=== PATIENT | male | born 1975 | race Caucasian/White ===

== ENCOUNTER → 2018-01-11 | Outpatient (CLI) | payer OTHER ==
--- NOTE | 2018-01-11 07:30 | DIAGNOSTIC IMAGING REPORT ---
(RENAL)RETROPERITON COMP HISTORY: Hydrocele. Obstruction. Pain. N43.3 [id number] COMPARISON: None. FINDINGS: Right kidney: Maximum dimension 12.0 cm. No evidence for hydronephrosis. Normal corticomedullary differentiation and cortical thickness. Left kidney: Maximum dimension 11.7 cm. No evidence for hydronephrosis. 5 mm lower pole nonobstructing calcification. Normal corticomedullary differentiation and cortical thickness. Bladder: No bladder wall thickening. The bilateral ureteral jets were identified. IMPRESSION: Small nonobstructing calcification lower pole left kidney. Otherwise normal study. The above report was generated using voice recognition software. It may contain grammatical, syntax or spelling errors. Electronically signed by: Avery Brock M.D. 01/11/2018 7:29 AM Dictated Date/Time: 01/11/2018 7:27 AM
--- NOTE | 2018-01-11 07:42 | DIAGNOSTIC IMAGING REPORT ---
KUB HISTORY: Recent lithotripsy. Nephrolithiasis. N43.3 Hydrocele [id number] COMPARISON: Renal ultrasound 01/11/2018. FINDINGS: The bowel gas pattern is unremarkable. There are no dilated loops of small bowel to suggest an obstruction. There is a 7 mm stone within the lower pole the left kidney. No right renal calculi. Small curvilinear calcification within the left side of the pelvis favors a vascular calcification. No pneumoperitoneum or pneumatosis. IMPRESSION: 1. A 7 mm stone within the lower pole the left kidney. 2. Small curvilinear calcification within the left side of the pelvis favors avascular calcification. A distal ureteral calculus could also have a similar appearance but is considered less likely. Electronically signed by: Leonidas Castaneda M.D. 01/11/2018 7:41 AM Dictated Date/Time: 01/11/2018 7:40 AM
== END | disposition home or self-care (01) ==
LOC: C.ULTR 06:36
PROVIDERS: ATTEND Urology
DX: N43.3 Hydrocele, unspecified (principal); N20.0 Calculus of kidney; R93.41 Abnormal radiologic findings on diagnostic imaging of renal pelvis, ureter, or bladder

== ENCOUNTER → 2018-05-27 | Outpatient (CLI) | payer OTHER ==
[~2018-05-27] VITALS: Ht 182.9 cm; Wt 125.0 kg
[~2018-05-27] MED LIST: AMLO-341 PO; BECL80AE7 INH; CLR10 PO; FAMO20TA11 PO; OMEG10007 PO; VITA1TAB4 PO
[2018-05-27 13:16] LABS: BASO % 0.3 %; BASO ABS # 0.02 K/uL (0-0.2); EOS % 3.4 %; EOS ABS # 0.26 K/uL (0-0.5); HEMATOCRIT 46.2 % (42-52); HEMOGLOBIN 16.7 g/dL (14.0-18.0); IG# 0.03 K/uL (0.00-0.02); LYMPH % 31.7 %; LYMPH ABS # 2.41 K/uL (1.2-3.4); MEAN CELL VOLUME 87.5 fL (80-100); MEAN CORPUSCULAR HEMOGLOBIN 31.6 pg (25-34); MEAN CORPUSCULAR HGB CONC 36.1 g/dl (32-36); MEAN PLATELET VOLUME 11.5 fL (7.4-10.4); MONO ABS # 0.38 K/uL (0.11-0.59); NEUT % 59.2 %; PLATELET COUNT 152 K/uL (130-400); RED CELL DISTRIBUTION WIDTH CV 12.5 % (11.5-14.5); RED CELL DISTRIBUTION WIDTH SD 39.8 fL (36.4-46.3)
--- NOTE | 2018-05-27 13:23 | DIAGNOSTIC IMAGING REPORT ---
CHEST 2 VIEWS ROUTINE HISTORY: 42 years-old Male N20.0 Nephrolithiasis follow-up study in a patient with history of nephrolithiasis COMPARISON: KUB 01/11/2018 TECHNIQUE: PA and lateral views of the chest FINDINGS: Cardiomediastinal and hilar silhouettes are within normal limits. No pneumothorax, pleural effusion, focal airspace consolidation or overt pulmonary edema. Bones of the chest appear grossly intact. Multilevel spondylitic spurring of the spine. IMPRESSION: No acute process. The above report was generated using voice recognition software. It may contain grammatical, syntax or spelling errors. Electronically signed by: Dell Winters M.D. 05/27/2018 1:22 PM Dictated Date/Time: 05/27/2018 1:21 PM
[2018-05-27 13:49] LABS: BLOOD UREA NITROGEN 15 mg/dl (7-18); CARBON DIOXIDE 24 mmol/L (21-32); CREATININE 1.17 mg/dl (0.60-1.40); POTASSIUM 3.5 mmol/L (3.5-5.1); SODIUM 138 mmol/L (136-145)
[2018-05-27 14:10] VITALS: Ht 182.9 cm; Wt 125.0 kg
== END | disposition home or self-care (01) ==
LOC: C.LAB 16:57 → C.PAT 06-04 16:27 → C.LAB 06-04 16:57 → EDSTATUS 06-14 08:00
PROVIDERS: ATTEND Urology
DX: N20.0 Calculus of kidney (principal); R00.0 Tachycardia, unspecified

== ENCOUNTER 2018-06-14 14:09 | Inpatient (IN) | payer OTHER ==
[~2018-06-14] VITALS: Ht 182.9 cm; Wt 125.0 kg
[~2018-06-14 14:09] MED LIST changes: -AMLO-341 PO; -ATROPINE SULFATE 0.1 MG/ML 5ML SYR IV PRN; -BECL80AE7 INH; -BUPIVACAINE/EPINEPHRINE 0.5% MPF 1:200,000 30 ML VIAL ONE; -CEFAZOLIN 3000MG IV PUSH 22.5 ML IV SCH; -CLR10 PO; -EpHEDrine SULFATE INJ 50 MG/ML AMP IV PRN; -FAMO20TA11 PO; -FENTANYL CITRATE INJ 50 MCG/1 ML 2 ML VIAL ONE; -LABETALOL HCL IV 5 MG/ML 20ML ONE; -LACTATED RINGER'S 1000ML 1,000 ML IV SCH; -LIDOCAINE HCL 2% 2 ML VIAL (20MG/ML) ONE; -MIDAZOLAM HCL 1 MG/ML 2ML VIAL ONE; -OMEG10007 PO; -ONDANSETRON INJ 2 MG/ML 2 ML VIAL IV PRN; -ONDANSETRON INJ 2 MG/ML 2 ML VIAL ONE; -OXYCODONE/ACETAMINOPHEN 5-325 TAB PO PRN; -PROPOFOL IV EMULSION 10 MG/ML 20 ML VIAL ONE; -ROCURONIUM BROMIDE 10 MG/ML 5 ML VIAL ONE; -SUCCINYLCHOLINE CHLORIDE 20 MG/ML 10 ML VIAL IV ONE; -VITA1TAB4 PO
[2018-06-14] MEDS ORDERED: OMEG10007 PO (14:10)
[2018-06-14] MEDS ORDERED: FAMO20TA11 PO (14:10)
[2018-06-14] MEDS ORDERED: VITA1TAB4 PO (14:10)
[2018-06-14] MEDS ORDERED: BECL80AE7 INH (14:10)
[2018-06-14] MEDS ORDERED: AMLO-341 PO (14:10)
[2018-06-14] MEDS ORDERED: CLR10 PO (14:10)
[2018-06-14] MEDS ORDERED: SODIUM CHLORIDE 0.9% 1000ML 1,000 ML IV STA (14:45)
[2018-06-14] MEDS ORDERED: ONDANSETRON INJ 2 MG/ML 2 ML VIAL IV STA (14:45)
[2018-06-14] MEDS ORDERED: SODIUM CHLORIDE 0.9% 500ML 500 ML IV STA (14:45)
[2018-06-14] MEDS ORDERED: FENTANYL CITRATE INJ 50 MCG/1 ML 2 ML VIAL IV STA (14:45)
--- NOTE | 2018-06-14 14:52 | EMERGENCY ROOM VISIT NOTE ---
History Report prepared by Shilpa: Nani Ken Under the Supervision of: Dr. Kellen Hutchinson M.D. First contact with patient: 14:34 Chief Complaint: BLEEDING Stated Complaint: DIZZY,S/P HYDROCELECTOMY THIS AM, BLEEDING Nursing Triage Summary: Hydrocelectomy this am. pt now reports dizziness, dry mouth, bleeding from stent sites, scrotal swelling. pt was referred here by surgeon History of Present Illness The patient is a 42 year old male who presents to the Emergency Room with complaints of bleeding from his scrotum today. The patient states that he had a left hydrocelectomy at 0700 this morning. He states that the site was draining blood earlier. The patient reports feeling dizzy and states that he has been dry heaving but denies vomiting. He also reports feeling dehydrated. Per family , the patient would have been due for a Percocet at 1430. The patient states that he has not eaten since lunch yesterday. The patient reports a history of hypertension. Source of History: patient, family Onset: today Position: other (scrotum) Quality: other (bleeding) Associated Symptoms: + weakness (dizzy), No vomiting Review of Systems See HPI for pertinent positives & negatives. A total of 10 systems reviewed and were otherwise negative. Past Medical & Surgical Medical Problems: (1) HTN (hypertension) Surgical Problems: (1) History of hydrocelectomy Family History Patient reports no known family medical history. Social History Smoking Status: Former Smoker Marital Status: Housing Status: lives with family Occupation Status: employed Current/Historical Medications Scheduled Amlodipine Besylate-Valsartan (Amlodipine Besylate/Valsa 5-160 mg), 1 TAB PO QAM Beclomethasone Dip (Qvar), 2 PUFFS INH BID Clindamycin HCl (Clindamycin HCl), 1 CAP PO QID Fish Oil ([place]-3), 1 CAP PO TID Loratadine (Claritin), 10 MG PO QPM Phenazopyridine Hcl (Pyridium), 200 MG PO TID Sulfamethoxazole-Trimethoprim (Bactrim Ds 800MG/160MG), 1 TAB PO BID Tamsulosin Hcl (Flomax), 0.4 MG PO DAILY Vitamin E (Vitamin E), 400 INTER.UNIT PO QAM Scheduled PRN Famotidine (Pepcid), 20 MG PO DAILY PRN for Heartburn Oxycodone/Acetaminophen 7.5MG/325MG (Percocet 7.5MG/325MG), 1 TAB PO Q4 PRN for Pain Allergies Coded Allergies: Penicillins (Verified Allergy, Unknown, UNK, 06/14/18) Physical Exam Vital Signs Date Time Temp Pulse Resp B/P (MAP) Pulse Ox O2 Delivery O2 Flow Rate FiO2 06/14/18 17:17 85 14 124/79 97 Room Air 06/14/18 16:46 83 13 133/82 96 Room Air 06/14/18 16:10 92 9 146/93 94 Room Air 06/14/18 15:28 93 06/14/18 14:16 36.3 92 18 106/71 95 Room Air Physical Exam Vital signs reviewed. Patient is afebrile. General: Well-appearing male, in no significant distress. HEENT: No scleral icterus, PERRLA, neck supple. Atraumatic. Cardiovascular: Regular rate and rhythm, no extra sounds. Pulmonary: Clear to auscultation bilaterally, normal work of breathing. Abdomen: Soft, nontender, nondistended, positive bowel sounds. Musculoskeletal: Atraumatic, no peripheral edema. Neurologic: Patient awake alert and oriented x 3, full strength in all 4 extremities. Cranial nerves 2 through 12 grossly intact. Skin: Warm, dry, no rash : Markedly edematous scrotum with ecchymosis and a surgical drain that does not appear to be draining. Non-visualization of the glans penis due to swelling. Medical Decision & Procedures Laboratory Results 06/14/18 15:09 Red Blood Count 4.70, Mean Corpuscular Volume 88.5, Mean Corpuscular Hemoglobin 31.9, Mean Corpuscular Hemoglobin Concent 36.1, Mean Platelet Volume 11.3, Neutrophils (%) (Auto) 88.7, Lymphocytes (%) (Auto) 6.1, Monocytes (%) (Auto) 4.7, Eosinophils (%) (Auto) 0.1, Basophils (%) (Auto) 0.2, Neutrophils # (Auto) 11.09, Lymphocytes # (Auto) 0.76, Monocytes # (Auto) 0.59, Eosinophils # (Auto) 0.01, Basophils # (Auto) 0.02 06/14/18 15:09 Test 06/14/18 15:09 White Blood Count 12.50 K/uL (4.8-10.8) Red Blood Count 4.70 M/uL (4.7-6.1) Hemoglobin 15.0 g/dL (14.0-18.0) Hematocrit 41.6 % (42-52) Mean Corpuscular Volume 88.5 fL (80-100) Mean Corpuscular Hemoglobin 31.9 pg (25-34) Mean Corpuscular Hemoglobin Concent 36.1 g/dl (32-36) Platelet Count 148 K/uL (130-400) Mean Platelet Volume 11.3 fL (7.4-10.4) Neutrophils (%) (Auto) 88.7 % Lymphocytes (%) (Auto) 6.1 % Monocytes (%) (Auto) 4.7 % Eosinophils (%) (Auto) 0.1 % Basophils (%) (Auto) 0.2 % Neutrophils # (Auto) 11.09 K/uL (1.4-6.5) Lymphocytes # (Auto) 0.76 K/uL (1.2-3.4) Monocytes # (Auto) 0.59 K/uL (0.11-0.59) Eosinophils # (Auto) 0.01 K/uL (0-0.5) Basophils # (Auto) 0.02 K/uL (0-0.2) RDW Standard Deviation 40.6 fL (36.4-46.3) RDW Coefficient of Variation 12.7 % (11.5-14.5) Immature Granulocyte % (Auto) 0.2 % Immature Granulocyte # (Auto) 0.03 K/uL (0.00-0.02) Anion Gap 9.0 mmol/L (3-11) Estimated GFR () 73.2 Estimated GFR (Non- 63.2 BUN/Creatinine Ratio 12.9 (10-20) Calcium Level 8.6 mg/dl (8.5-10.1) Total Bilirubin 0.9 mg/dl (0.2-1) Direct Bilirubin 0.2 mg/dl (0-0.2) Aspartate Amino Transf (AST/SGOT) 28 U/L (15-37) Alanine Aminotransferase (ALT/SGPT) 42 U/L (12-78) Alkaline Phosphatase 56 U/L (45-117) Total Protein 7.0 gm/dl (6.4-8.2) Albumin 3.9 gm/dl (3.4-5.0) Laboratory results per my review. Medications Administered Medications (Trade) Dose Ordered Sig/Patel Route Start Time Stop Time Status Last Admin Dose Admin Sodium Chloride 500 ml @ 999 mls/hr Q31M STAT IV 06/14/18 14:45 06/14/18 15:15 DC 06/14/18 14:45 999 MLS/HR Sodium Chloride 1,000 ml @ 150 mls/hr Q6H40M STAT IV 06/14/18 14:45 06/14/18 21:24 06/14/18 14:45 150 MLS/HR Fentanyl Citrate (Fentanyl Inj) 100 mcg NOW STAT IV 06/14/18 14:45 06/14/18 14:48 DC 06/14/18 15:07 100 MCG Ondansetron HCl (Zofran Inj) 4 mg NOW STAT IV 06/14/18 14:45 06/14/18 14:48 DC 06/14/18 15:07 4 MG Fentanyl Citrate (Fentanyl Inj) 100 mcg Q1HWA PRN IV 06/14/18 16:00 06/28/18 15:59 06/14/18 17:16 100 MCG ED Course 1443: Past medical records reviewed. The patient was evaluated in room A11A. A complete history and physical examination was performed. 1456: I reviewed the patient's case with Dr. Heck-Urology. He will come to evaluate the patient. 1512: I checked on the patient. Dr. Heck will take the patient back to the OR. 1620: I checked on the patient. He is feeling better with the Fentanyl. He is fourth on the list for the OR. 1800: The patient was admitted to Dr. Heck. Dr. Heck just finished his last case so the patient will be going to the OR shortly. Medical Decision The patient is a 42 year old male who presents to the ED with complaints of scrotal bleeding. Differentials include post-surgical scrotal hematoma, testicular torsion, kidney stone, orchitis, and epididymitis. This patient was evaluated and appeared to be in no significant distress. Physical examination reveals a scrotal hematoma and a surgical drain that does not appear to be draining. Patient likely has a blood collection. He is in some discomfort but IV fentanyl and Zofran have helped alleviate this discomfort. IV normal saline solution was given. Dr. Heck of urology was contacted and evaluated the patient in the emergency department. He will take the patient to the operating room later this evening for definitive management. Patient and are aware of the plan and agree. Patient did receive additional IV fentanyl for continued discomfort. Medication Reconcilliation Current Medication List: was personally reviewed by me Blood Pressure Screening Patient's blood pressure: Normal blood pressure Consults Time Called: 144 Consulting Physician: Dr. Heck-Urology Returned Call: [id number] I reviewed the patient's case with Dr. Heck-Urology. He will come to evaluate the patient. Impression Primary Impression: Scrotal hematoma Additional Impression: History of hydrocelectomy Scribe Attestation The scribe's documentation has been prepared under my direction and personally reviewed by me in its entirety. I confirm that the note above accurately reflects all work, treatment, procedures, and medical decision making performed by me. Departure Information Dispostion Being Evaluated By Hospitalist Referrals Clover Umana M.D. (PCP) Patient Instructions My [facility] Problem Qualifiers
[2018-06-14 15:21] LABS: BASO % 0.2 %; BASO ABS # 0.02 K/uL (0-0.2); EOS % 0.1 %; EOS ABS # 0.01 K/uL (0-0.5); HEMATOCRIT 41.6 % (42-52); IG# 0.03 K/uL (0.00-0.02); LYMPH % 6.1 %; LYMPH ABS # 0.76 K/uL (1.2-3.4); MEAN CELL VOLUME 88.5 fL (80-100); MEAN CORPUSCULAR HEMOGLOBIN 31.9 pg (25-34); MEAN CORPUSCULAR HGB CONC 36.1 g/dl (32-36); MEAN PLATELET VOLUME 11.3 fL (7.4-10.4); MONO % 4.7 %; MONO ABS # 0.59 K/uL (0.11-0.59); NEUT % 88.7 %; NEUT ABS # 11.09 K/uL (1.4-6.5); PLATELET COUNT 148 K/uL (130-400); RED CELL DISTRIBUTION WIDTH CV 12.7 % (11.5-14.5); RED CELL DISTRIBUTION WIDTH SD 40.6 fL (36.4-46.3)
[2018-06-14 15:40] LABS: ALBUMIN 3.9 gm/dl (3.4-5.0); ALKALINE PHOSPHATASE 56 U/L (45-117); ALT/SGPT 42 U/L (12-78); AST/SGOT 28 U/L (15-37); BLOOD UREA NITROGEN 18 mg/dl (7-18); CALCIUM 8.6 mg/dl (8.5-10.1); CARBON DIOXIDE 26 mmol/L (21-32); CREATININE 1.37 mg/dl (0.60-1.40); GLUCOSE 152 mg/dl (70-99); POTASSIUM 4.2 mmol/L (3.5-5.1); SODIUM 138 mmol/L (136-145)
[2018-06-14] MEDS: FENTANYL CITRATE INJ 50 MCG/1 ML 2 ML VIAL IV PRN ×2 (16:07→17:16)
--- NOTE | 2018-06-14 18:00 | History and Physical ---
History & Physical Date Jun 14, 2018. Chief Complaint Scrotal Hematoma. History of Present Illness The patient is a 42 year old male with complaints of severe swelling and enlargement and bruising of scrotum after hydrocelectomy. Patient developed severe issues after procedure earlier in day. No inciting event. Spontaneous developed severe swelling, trouble voiding, and sever pain. Comes in waves. Very bothersome. No major improvement. Has shameka drain in place that appears to be draining but still major swelling and pain. Radiating up groin in waves and severe discomfort. Past Medical/Surgical History Medical Problems: (1) HTN (hypertension) Surgical Problems: (1) History of hydrocelectomy Allergies Coded Allergies: Penicillins (Verified Allergy, Unknown, UNK, 06/14/18) Home Medications Scheduled Amlodipine Besylate-Valsartan (Amlodipine Besylate/Valsa 5-160 mg), 1 TAB PO QAM Beclomethasone Dip (Qvar), 2 PUFFS INH BID Clindamycin HCl (Clindamycin HCl), 1 CAP PO QID Fish Oil ([place]-3), 1 CAP PO TID Loratadine (Claritin), 10 MG PO QPM Phenazopyridine Hcl (Pyridium), 200 MG PO TID Sulfamethoxazole-Trimethoprim (Bactrim Ds 800MG/160MG), 1 TAB PO BID Tamsulosin Hcl (Flomax), 0.4 MG PO DAILY Vitamin E (Vitamin E), 400 INTER.UNIT PO QAM Scheduled PRN Famotidine (Pepcid), 20 MG PO DAILY PRN for Heartburn Oxycodone/Acetaminophen 7.5MG/325MG (Percocet 7.5MG/325MG), 1 TAB PO Q4 PRN for Pain Physical Examination Skin: warm/dry Eyes: normal inspection, sclerae normal ENT: normal ENT inspection, pharynx normal Head: normocephalic, atraumatic Neck: trachea midline Respiratory/Chest: no respiratory distress Cardiovascular: regular rate, rhythm Abdomen / GI: non tender Back: normal inspection Extremities: normal inspection Genitourinary - Male: + pertinent finding (Severe swelling of bilateral scrotum with ecchymosis and severe tenderness. ) Neurologic/Psych: no motor/sensory deficits, alert, normal reflexes, oriented x 3 Diagnosis Scrotal Hematoma ASA Classification: ASA Class III Plan of Treatment Pain management and supportive care. Risks and benefits discussed at [facility]. Will plan urgent scrotal exploration and evacuation of hematoma. Patient has bilateral echymosis and swelling and drain continues to drain at this time without severe swelling of unilateral hemiscrotum. Will assess with exploration to better identify source of issues. Patient wishes to proceed. Consent on chart.
[2018-06-14] MEDS ORDERED: BACITRACIN OINT 15 GM TUBE ONE (18:18)
[2018-06-14] MEDS: BUPIVACAINE 0.5 % 5 MG/1 ML PF 10ML VIAL ONE ×2 (18:19→21:27)
[2018-06-14] MEDS ORDERED: ONDANSETRON INJ 2 MG/ML 2 ML VIAL ONE (18:58)
[2018-06-14] MEDS ORDERED: PROPOFOL IV EMULSION 10 MG/ML 20 ML VIAL ONE (18:58)
[2018-06-14] MEDS ORDERED: LIDOCAINE HCL 2% 2 ML VIAL (20MG/ML) ONE (18:58)
[2018-06-14] MEDS ORDERED: FENTANYL CITRATE INJ 50 MCG/1 ML 2 ML VIAL ONE (18:59)
[2018-06-14] MEDS ORDERED: MIDAZOLAM HCL 1 MG/ML 2ML VIAL ONE (18:59)
[2018-06-14] MEDS ORDERED: ONDANSETRON INJ 2 MG/ML 2 ML VIAL IV PRN ×2 (19:15→19:30)
[2018-06-14] MEDS ORDERED: HYDROmorphone INJ 1 MG/ML SYR IV PRN ×2 (19:15→19:30)
[2018-06-14] MEDS ORDERED: CEFAZOLIN IV 1,000 MG in DEXTROSE 5% 50ML 50 ML IV SCH (19:15)
[2018-06-14] MEDS ORDERED: FENTANYL CITRATE INJ 50 MCG/1 ML 2 ML VIAL IV PRN (19:30)
[2018-06-14] MEDS ORDERED: EpHEDrine SULFATE INJ 50 MG/ML AMP IV PRN (19:30)
[2018-06-14] MEDS ORDERED: MEPERIDINE HCL 25 MG/ML CARP IV PRN (19:30)
[2018-06-14] MEDS ORDERED: LABETALOL HCL IV 5 MG/ML 20ML IV PRN (19:30)
[2018-06-14] MEDS ORDERED: ATROPINE SULFATE 0.1 MG/ML 5ML SYR IV PRN (19:30)
[2018-06-14] MEDS ORDERED: BACITRACIN 50000 UNIT VIAL ONE (19:39)
[2018-06-14] MEDS ORDERED: CEFAZOLIN SOD 1 GM VIAL ONE (20:00)
[2018-06-14] MEDS ORDERED: PHENYLEPHRINE HCL INJ 10 MG/ML VIAL ONE (20:00)
[2018-06-14] MEDS ORDERED: ARISTA ABSORBABLE HEMOSTAT 3GM TOP ONE (20:09)
[2018-06-14] MEDS: DOCUSATE SODIUM 100 MG CAP PO SCH (21:00)
[2018-06-14] MEDS ORDERED: IV FLUIDS COMPLETED PRN (21:15)
--- NOTE | 2018-06-14 21:38 | [facility] Operative Report ---
Operative Report Operative Date Jun 14, 2018. Pre-Operative Diagnosis Scrotal Hematoma Post-Operative Diagnosis Same Procedure(s) Performed Scrotal exploration and evacuation of hematoma with ligation of minor scrotal wall bleed. Surgeon Umang Estimated Blood Loss Minimal Findings Mod bleeding down from inguinal sylvia, mult area along wall Specimens None Drains [place] drain . 16 Fr Jimenez Anesthesia Type General Complication(s) none Disposition Recovery Room / PACU Indications Large acute scrotal hematoma. Risks and benefits discussed. Description of Procedure Patient was consented and brought back to the operating room. Patient was placed under anesthesia in the supine position. Patient was prepped and draped in the regular sterile fashion. A time out was completed. With the time out completed and the patient prepped, the previous incision was assessed. An incision was made with a scalpel and the deep tissues were dissected with bovie electrocautery. Immediately a large hematoma was evacuated. The testicle was delivered and found to be viable without any bleeding from the testicle or cord. The entire area was irrigated copiously. Multiple areas of the scrotal wall were found to be oozing and bleeding especially up near the lateral wall closest to the sylvia. This had been an area of increased adhesions after previous aspirations. All important structures and landmarks were identified and the testicle was not torsed. A moderate amount of what appeared to be active bleeding was traced up toward the ring. There appeared to be bleeding coming from around the cord. No active bleeding within the cord. The incision was extended towards the scrotal junction. A small bleeding area was surture ligated. No major bleeding vessels were identified. Surgiseal and Pal were placed around the cord after the area was irrigated. The drain track from the earlier drain was opened further and a larger shameka was placed. With this in place, it was suture with a nylon. The testicle appeared viable without lesions or other areas of concern. Minor oozing was noted from some areas of the scrotal wall. These were fulgurated. The Testicle was placed into the hemiscrotum in anatomic position without any torsion of the cord. The deep and subcutaneous tissues were closed with an inturrupted 2-0 vicryl suture. The skin edges were reapproximated with horizontal mattress nylon 2-0 suture. The drain appeared to be draining well. The area was cleaned. A jimenez catheter was placed due to the penile edema. A scrotal support was placed with dressings. The patient was cleaned, aroused from anesthesia, and transferred to the pacu in stable condition having tolerated the procedure well with no complications. I was present and participated in all aspects of the procedure. I attest to the content of the Intraoperative Record and any orders documented therein. Any exceptions are noted below.
--- NOTE | 2018-06-14 22:23 | Anesthesiology Progress Note ---
Anesthesia Post Op Note Date & Time Jun 14, 2018 at 22:22 Vital Signs Pain Intensity: 2 Vital Signs Past 12 Hours Date Time Temp Pulse Resp B/P (MAP) Pulse Ox O2 Delivery O2 Flow Rate FiO2 06/14/18 22:15 36.7 95 17 124/87 97 Nasal Cannula 2 06/14/18 22:05 94 14 128/85 99 Oxymask 10 06/14/18 21:55 96 18 122/86 99 Oxymask 10 06/14/18 21:46 36.4 97 13 141/91 98 Oxymask 10 06/14/18 18:10 93 15 129/93 96 06/14/18 17:17 85 14 124/79 97 Room Air 06/14/18 16:46 83 13 133/82 96 Room Air 06/14/18 16:10 92 9 146/93 94 Room Air 06/14/18 15:28 93 06/14/18 14:16 36.3 92 18 106/71 95 Room Air Notes Mental Status: alert / awake / arousable, participated in evaluation Pt Amnestic to Procedure: Yes Nausea / Vomiting: adequately controlled Pain: adequately controlled Airway Patency, RR, SpO2: stable & adequate BP & HR: stable & adequate Hydration State: stable & adequate Anesthetic Complications: no major complications apparent
[2018-06-14 23:00] VITALS: BP 126/79; PULSE 100; TEMP 37.3; O2SAT 98
[2018-06-14] MEDS ORDERED: OPTIRAY 320 IV PRN (23:15)
[2018-06-14 23:54] VITALS: BP 129/86; PULSE 110; TEMP 37.5; O2SAT 96
[2018-06-14] MEDS: D5W AND 1/2NSS + 20MEQ KCL 1,000 ML IV SCH (23:54)
[2018-06-14 23:55] LABS: HEMATOCRIT 34.2 % (42-52); HEMOGLOBIN 12.1 g/dL (14.0-18.0); MEAN CELL VOLUME 89.3 fL (80-100); MEAN CORPUSCULAR HEMOGLOBIN 31.6 pg (25-34); MEAN CORPUSCULAR HGB CONC 35.4 g/dl (32-36); MEAN PLATELET VOLUME 10.8 fL (7.4-10.4); PLATELET COUNT 144 K/uL (130-400); RED CELL DISTRIBUTION WIDTH SD 42.4 fL (36.4-46.3); WHITE BLOOD COUNT 11.39 K/uL (4.8-10.8)
[2018-06-15] VITALS (8 sets, daily range): BP systolic 111–130; BP diastolic 68–91; PULSE 101–111; TEMP 37.2–37.6; O2SAT 93–98; Ht 182.9 cm; Wt 125.0 kg
[2018-06-15 00:08] LABS: ALBUMIN 3.3 gm/dl (3.4-5.0); ALKALINE PHOSPHATASE 48 U/L (45-117); ALT/SGPT 34 U/L (12-78); AST/SGOT 20 U/L (15-37); BLOOD UREA NITROGEN 15 mg/dl (7-18); CALCIUM 7.5 mg/dl (8.5-10.1); CARBON DIOXIDE 24 mmol/L (21-32); CREATININE 1.35 mg/dl (0.60-1.40); GLUCOSE 150 mg/dl (70-99); POTASSIUM 4.4 mmol/L (3.5-5.1); SODIUM 137 mmol/L (136-145); TOTAL PROTEIN 5.9 gm/dl (6.4-8.2)
[2018-06-15] MEDS: OXYCODONE/ACETAMINOPHEN 5-325 TAB PO PRN ×4 (00:15→19:02)
[2018-06-15] MEDS: CEFAZOLIN IV 1,000 MG in SYRINGE 0 ML IV SCH ×3 (04:19→20:32)
[2018-06-15 07:21] LABS: HEMATOCRIT 30.1 % (42-52); HEMOGLOBIN 10.4 g/dL (14.0-18.0); MEAN CELL VOLUME 89.6 fL (80-100); MEAN CORPUSCULAR HGB CONC 34.6 g/dl (32-36); MEAN PLATELET VOLUME 11.3 fL (7.4-10.4); PLATELET COUNT 134 K/uL (130-400); RED CELL DISTRIBUTION WIDTH CV 13.1 % (11.5-14.5); RED CELL DISTRIBUTION WIDTH SD 42.6 fL (36.4-46.3); WHITE BLOOD COUNT 9.81 K/uL (4.8-10.8)
--- NOTE | 2018-06-15 07:23 | DIAGNOSTIC IMAGING REPORT ---
CT SCAN OF THE ABDOMEN AND PELVIS WITH IV CONTRAST CLINICAL HISTORY: Generalized abdominal pain. Scrotal pain. Reported history of recent urologic surgery. COMPARISON STUDY: KUB dated 06/13/2018. TECHNIQUE: Following the IV administration of 92 cc of Optiray 320, CT scan of the abdomen and pelvis is performed from the lung bases to the proximal femora. Images are reviewed in the axial, sagittal, and coronal planes. IV contrast was administered without complication. A dose lowering technique was utilized adhering to the principles of ALARA. CT DOSE: 2127.46 mGy.cm FINDINGS: Lung bases: The heart is normal in size and without pericardial effusion. There are trace pleural effusions with dependent atelectasis. There is a small hiatal hernia. Liver: The contrast-enhanced liver is top normal in size measuring 18 cm in length. The liver demonstrates diffusely diminished attenuation consistent with hepatic steatosis. Fatty sparing is seen adjacent to gallbladder fossa. There is no intrahepatic biliary ductal dilatation. The hepatic veins and portal veins are patent. Gallbladder: Unremarkable. Spleen: Normal in size and attenuation. Pancreas: Unremarkable. Adrenal glands: Unremarkable. Kidneys: The contrast enhanced kidneys are normal in size and without hydronephrosis. The kidneys enhance symmetrically. Small nonobstructing calculi are noted in the left kidney. No right renal calculi are clearly seen on this contrast-enhanced examination. Abdominal vasculature: The abdominal aorta is normal in course and caliber noting mild atherosclerotic calcification. Bowel: The small bowel and colon are normal in course and caliber. The appendix is well-visualized and normal. Peritoneum: There is no intraperitoneal free air or abdominal ascites. There is a small fat-containing umbilical hernia. Lymphadenopathy: None. Pelvic viscera: The bladder is decompressed around a Gonzalez catheter and not well evaluated. The prostate and seminal vesicles are normal as imaged. There is significant induration identified within the groin bilaterally, left greater than right. There is trace hyperdense fluid identified within the subcutaneous soft tissues of the left groin extending along the left inguinal canal. Foci of gas are present along the left inguinal canal extending into the scrotum. Skeletal structures: No lytic or blastic lesions are seen. IMPRESSION: 1. There is significant subcutaneous soft tissue edema and stranding identified in the groin bilaterally, left greater than right. 2. There is trace hyperdense fluid identified in the subcutaneous soft tissues of the left groin which extends along the left inguinal canal towards the scrotum. This likely represents hemorrhage/blood products. No large/organized hematoma is seen. 3. Foci of subcutaneous gas are present along the left inguinal canal and extending into the left scrotum. This may be related to recent surgery. Soft tissue infection is not excluded. Clinical correlation will be essential. 4. There are nonobstructing left renal calculi. No ureteral stone or hydronephrosis is seen. 5. Hepatic steatosis. 6. Trace pleural effusions. 7. Additional findings as above. Electronically signed by: Kennedy Peng M.D. 06/15/2018 7:22 AM Dictated Date/Time: 06/15/2018 7:14 AM
[2018-06-15 07:53] LABS: ALBUMIN 2.9 gm/dl (3.4-5.0); CALCIUM 7.7 mg/dl (8.5-10.1); CREATININE 1.37 mg/dl (0.60-1.40); POTASSIUM 3.7 mmol/L (3.5-5.1); TOTAL PROTEIN 5.4 gm/dl (6.4-8.2)
[2018-06-15] MEDS ORDERED: CALCIUM CARBONATE 500 MG CHEWABLE PO PRN (08:15)
[2018-06-15] MEDS: DOCUSATE SODIUM 100 MG CAP PO SCH ×2 (09:17→20:33)
[2018-06-15] MEDS: D5W AND 1/2NSS + 20MEQ KCL 1,000 ML IV SCH ×2 (09:49→20:33)
--- NOTE | 2018-06-15 11:02 | Progress Note ---
Subjective Date of Service: Jun 15, 2018. Subjective Pt evaluation today including: conversation w/ patient, physical exam, chart review, lab review, review of studies Pain: Tolerated PO Intake: Good Doing well. Has been ambulating. Minor dizziness. Tolerating catheter. NO severe issues. NO major swelling. Minor drainage compared to the evening. Did well post operatively after exploration and evacuation. NO major issues this am. CT shows some residual hematoma along left inguinal canal. No major issues or infections signs. Stone appears to be adequately destroyed Problem List Medical Problems: (1) Scrotal hematoma Status: Acute Surgical Problems: (1) History of hydrocelectomy Status: Chronic Review of Systems All Other Systems: Reviewed and Negative Objective Vital Signs Date Time Temp Pulse Resp B/P (MAP) Pulse Ox O2 Delivery O2 Flow Rate FiO2 06/15/18 07:35 Room Air 06/15/18 07:33 37.2 101 18 122/80 (94) 94 Room Air 06/15/18 02:30 37.2 101 16 124/73 (90) 94 Room Air 06/15/18 01:30 37.3 101 16 111/68 (82) 93 Room Air 06/15/18 00:30 37.5 108 16 130/91 (104) 95 Room Air 06/15/18 00:25 37.3 111 16 126/79 98 Room Air 06/14/18 23:54 37.5 110 16 129/86 (100) 96 Room Air 06/14/18 23:00 37.3 100 16 126/79 (95) 98 Nasal Cannula 2.0 06/14/18 22:50 Nasal Cannula 06/14/18 22:50 Nasal Cannula 2.0 06/14/18 22:45 94 18 123/74 98 Nasal Cannula 2 06/14/18 22:30 97 14 138/85 98 Nasal Cannula 2 06/14/18 22:15 36.7 95 17 124/87 97 Nasal Cannula 2 06/14/18 22:05 94 14 128/85 99 Oxymask 10 06/14/18 21:55 96 18 122/86 99 Oxymask 10 06/14/18 21:46 36.4 97 13 141/91 98 Oxymask 10 06/14/18 18:10 93 15 129/93 96 06/14/18 17:17 85 14 124/79 97 Room Air 06/14/18 16:46 83 13 133/82 96 Room Air 06/14/18 16:10 92 9 146/93 94 Room Air 06/14/18 15:28 93 06/14/18 14:16 36.3 92 18 106/71 95 Room Air Physical Exam General Appearance: WD/WN, no apparent distress Eyes: normal inspection ENT: normal ENT inspection, hearing grossly normal Neck: supple Respiratory/Chest: no respiratory distress, no accessory muscle use Cardiovascular: regular rate, rhythm Abdomen: non tender, soft Extremities: normal range of motion, non-tender, normal inspection, no pedal edema, no calf tenderness 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 Drain in dependent left scrotum with minor bleeding Laboratory Results Last 24 Hours Test 06/14/18 15:09 06/14/18 23:21 06/15/18 06:57 White Blood Count 12.50 K/uL 11.39 K/uL 9.81 K/uL Red Blood Count 4.70 M/uL 3.83 M/uL 3.36 M/uL Hemoglobin 15.0 g/dL 12.1 g/dL 10.4 g/dL Hematocrit 41.6 % 34.2 % 30.1 % Mean Corpuscular Volume 88.5 fL 89.3 fL 89.6 fL Mean Corpuscular Hemoglobin 31.9 pg 31.6 pg 31.0 pg Mean Corpuscular Hemoglobin Concent 36.1 g/dl 35.4 g/dl 34.6 g/dl Platelet Count 148 K/uL 144 K/uL 134 K/uL Mean Platelet Volume 11.3 fL 10.8 fL 11.3 fL Neutrophils (%) (Auto) 88.7 % Lymphocytes (%) (Auto) 6.1 % Monocytes (%) (Auto) 4.7 % Eosinophils (%) (Auto) 0.1 % Basophils (%) (Auto) 0.2 % Neutrophils # (Auto) 11.09 K/uL Lymphocytes # (Auto) 0.76 K/uL Monocytes # (Auto) 0.59 K/uL Eosinophils # (Auto) 0.01 K/uL Basophils # (Auto) 0.02 K/uL RDW Standard Deviation 40.6 fL 42.4 fL 42.6 fL RDW Coefficient of Variation 12.7 % 13.0 % 13.1 % Immature Granulocyte % (Auto) 0.2 % Immature Granulocyte # (Auto) 0.03 K/uL Sodium Level 138 mmol/L 137 mmol/L 138 mmol/L Potassium Level 4.2 mmol/L 4.4 mmol/L 3.7 mmol/L Chloride Level 103 mmol/L 107 mmol/L 104 mmol/L Carbon Dioxide Level 26 mmol/L 24 mmol/L 25 mmol/L Anion Gap 9.0 mmol/L 6.0 mmol/L 8.0 mmol/L Blood Urea Nitrogen 18 mg/dl 15 mg/dl 14 mg/dl Creatinine 1.37 mg/dl 1.35 mg/dl 1.37 mg/dl Estimated GFR () 73.2 74.5 73.2 Estimated GFR (Non- 63.2 64.3 63.2 BUN/Creatinine Ratio 12.9 11.4 10.0 Random Glucose 152 mg/dl 150 mg/dl 135 mg/dl Calcium Level 8.6 mg/dl 7.5 mg/dl 7.7 mg/dl Total Bilirubin 0.9 mg/dl 0.7 mg/dl 0.6 mg/dl Direct Bilirubin 0.2 mg/dl Aspartate Amino Transf (AST/SGOT) 28 U/L 20 U/L 20 U/L Alanine Aminotransferase (ALT/SGPT) 42 U/L 34 U/L 27 U/L Alkaline Phosphatase 56 U/L 48 U/L 41 U/L Total Protein 7.0 gm/dl 5.9 gm/dl 5.4 gm/dl Albumin 3.9 gm/dl 3.3 gm/dl 2.9 gm/dl Globulin 2.6 gm/dl 2.5 gm/dl Albumin/Globulin Ratio 1.3 1.2 Est Creatinine Clear Calc Drug Dose 95.9 ml/min Assessment and Plan 1. Left Scrotal Hematoma with scrotal ecchymosis s/p hydrocelectomy and clot evacuation and scrotal exploration 2. Nephrolithaisis s/p ESWL 3. Urinary retention WIll continue to monitor closely. Monitor labs. Imaging reviewed. May need scrotal u/s at some point. Will follow closely Maintain catheter for now. continue pain control. Follow.
[2018-06-16] MEDS: OXYCODONE/ACETAMINOPHEN 5-325 TAB PO PRN ×5 (00:13→22:06)
[2018-06-16] MEDS: D5W AND 1/2NSS + 20MEQ KCL 1,000 ML IV SCH ×2 (06:00→15:49)
[2018-06-16] MEDS: DOCUSATE SODIUM 100 MG CAP PO SCH ×2 (08:31→22:03)
[2018-06-16 15:08] VITALS: BP 140/83; PULSE 95; TEMP 37.5; O2SAT 99
--- NOTE | 2018-06-16 19:32 | Progress Note ---
Subjective Date of Service: Jun 16, 2018. Subjective Pt evaluation today including: conversation w/ patient Pain: Tolerated Doing better. Pain controlled. No severe issues. Swelling improving. NO major chnges. No severe bleeding. COntinues to have drainage from drains. WOund healing Problem List Medical Problems: (1) Scrotal hematoma Status: Acute Surgical Problems: (1) History of hydrocelectomy Status: Chronic Objective Vital Signs Date Time Temp Pulse Resp B/P (MAP) Pulse Ox O2 Delivery O2 Flow Rate FiO2 06/16/18 07:50 Room Air 06/15/18 23:55 Room Air 06/15/18 23:25 37.6 106 18 129/73 (91) 95 Room Air 06/15/18 15:30 Room Air 06/15/18 15:29 37.6 108 18 125/72 (89) 95 Room Air 06/15/18 11:34 37.5 103 18 126/80 (95) 98 Room Air Physical Exam General Appearance: WD/WN, no apparent distress Eyes: normal inspection ENT: hearing grossly normal Neck: no adenopathy, no JVD Respiratory/Chest: no respiratory distress, no accessory muscle use Cardiovascular: regular rate, rhythm Abdomen: non tender Extremities: normal range of motion, no pedal edema Neurologic/Psychiatric: 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 drains in dependant portion of scrotum Assessment and Plan 1. Left Scrotal Hematoma with scrotal ecchymosis s/p hydrocelectomy and clot evacuation and scrotal exploration 2. Nephrolithaisis s/p ESWL 3. Urinary retention WIll continue to monitor closely. Monitor labs. Imaging reviewed. May need scrotal u/s at some point. Will follow closely Maintain catheter for now. continue pain control. Follow. POD2: Doing well will continue to monitor. Continue wound care. Continue icing. Proceed with antibiotics.
[2018-06-16 22:50] VITALS: BP 129/78; PULSE 95; TEMP 37; O2SAT 97
[2018-06-17] MEDS: D5W AND 1/2NSS + 20MEQ KCL 1,000 ML IV SCH (01:03)
[2018-06-17 07:34] VITALS: BP 142/91; PULSE 90; TEMP 36.9; O2SAT 98
[2018-06-17 07:54] LABS: HEMATOCRIT 26.7 % (42-52); HEMOGLOBIN 9.4 g/dL (14.0-18.0); MEAN CELL VOLUME 89.6 fL (80-100); MEAN CORPUSCULAR HEMOGLOBIN 31.5 pg (25-34); MEAN CORPUSCULAR HGB CONC 35.2 g/dl (32-36); MEAN PLATELET VOLUME 10.3 fL (7.4-10.4); PLATELET COUNT 117 K/uL (130-400); RED CELL DISTRIBUTION WIDTH CV 12.8 % (11.5-14.5); RED CELL DISTRIBUTION WIDTH SD 41.2 fL (36.4-46.3)
[2018-06-17 08:23] LABS: ALBUMIN 2.9 gm/dl (3.4-5.0); CALCIUM 7.8 mg/dl (8.5-10.1); CREATININE 0.93 mg/dl (0.60-1.40); POTASSIUM 3.9 mmol/L (3.5-5.1)
[2018-06-17] MEDS: OXYCODONE/ACETAMINOPHEN 5-325 TAB PO PRN (10:07)
[2018-06-17] MEDS: DOCUSATE SODIUM 100 MG CAP PO SCH ×2 (10:07→20:28)
[2018-06-17] MEDS ORDERED: NURSING VERBAL MED ORDER ONE ×4 (10:15→21:15)
--- NOTE | 2018-06-17 13:05 | Anesthesiology Progress Note ---
Anesthesia Post Op Note Date & Time Jun 17, 2018 at 07:35 Vital Signs Pain Intensity: 5.0 Vital Signs Past 12 Hours Date Time Temp Pulse Resp B/P (MAP) Pulse Ox O2 Delivery O2 Flow Rate FiO2 06/17/18 08:00 Room Air 06/17/18 07:34 36.9 90 18 142/91 (108) 98 Room Air Notes Mental Status: alert / awake / arousable, participated in evaluation Pt Amnestic to Procedure: Yes Nausea / Vomiting: adequately controlled Pain: adequately controlled Airway Patency, RR, SpO2: stable & adequate BP & HR: stable & adequate Hydration State: stable & adequate Anesthetic Complications: no major complications apparent pt complains of some fine touch numbness on the lateral aspect of his right thigh, states he can feel gross, touch, pressure, and temperature and feels it has improved since yesterday. Dr. Heck and nursing staff also aware. Otherwise patient is very satisfied with anesthetic care, no other questions concerns or comments.
[2018-06-17 15:27] VITALS: BP 169/101; PULSE 106; TEMP 37.1; O2SAT 96
--- NOTE | 2018-06-17 15:27 | Progress Note ---
Progress Note Date of Service Jun 17, 2018. Progress Note 42 YO male, POD #3, left Scrotal Hematoma with scrotal ecchymosis s/p hydrocelectomy and clot evacuation and scrotal exploration, nephrolithiasis s/p ESWL, urinary retention Patient is doing well today. Reports improvement in his pain. Tolerating diet. Afebrile. Drain is patent, scrotal swelling is improving. Plan: Hep lock fluids today. Gonzalez removal/TOV today. Successful spontaneous void per nursing. Patient requests to spend tonight at the hospital, ready for discharge tomorrow morning. Will plan for continued clindamycin at home with pain control PRN. Will arrange outpatient follow up in 7-10 days for symptom check and drain removal.
[2018-06-17 17:53] VITALS: BP 153/100; PULSE 101
[2018-06-17] MEDS ORDERED: BISACODYL 10 MG SUPP PR PRN (18:00)
[2018-06-17] MEDS: IBUPROFEN 200 MG TAB PO PRN (20:27)
[2018-06-17 20:41] VITALS: BP 164/103; PULSE 101
[2018-06-17] MEDS: VALSARTAN 80 MG TAB PO SCH (22:34)
[2018-06-17 22:35] VITALS: BP 184/107; PULSE 99
[2018-06-17] MEDS: AMLODIPINE BESYLATE 5 MG TAB PO SCH (22:35)
[2018-06-17 23:25] VITALS: BP 151/89; PULSE 89; TEMP 36.8; O2SAT 96
[2018-06-18 07:10] VITALS: BP 167/100; PULSE 102; TEMP 36.7; O2SAT 97
[2018-06-18] MEDS: IBUPROFEN 200 MG TAB PO PRN ×2 (08:03→13:51)
[2018-06-18] MEDS: AMLODIPINE BESYLATE 5 MG TAB PO SCH (08:04)
[2018-06-18] MEDS: DOCUSATE SODIUM 100 MG CAP PO SCH (08:04)
[2018-06-18] MEDS: VALSARTAN 80 MG TAB PO SCH (08:04)
--- NOTE | 2018-06-18 14:20 | Discharge Instructions ---
Discharge Instructions Date of Service Jun 18, 2018. Admission Reason for Admission: Acute Pain In Scrotum Discharge Discharge Diagnosis / Problem: same Discharge Goals Goal(s): Decrease discomfort, Improve function Activity Recommendations Activity Limitations: as noted below Lifting Limitations: gradually increase as tolerated, until after follow-up appointment Exercise/Sports Limitations: gradually increase as tolerated, until after follow-up appointment May Resume Sexual Activity: after follow-up appointment Shower/Bathe: tomorrow Driving or Machine Use: after follow up appointment . Instructions / Follow-Up Instructions / Follow-Up Please fill the prescriptions that Dr. Heck gave you after your first procedure (Clindamycin -antibiotic and Oxycodone - pain) Take Tylenol as needed for mild pain. Take Oxycodone as needed for moderate pain. Call the office if experiencing severe pain. Finish all antibiotics. Scrotal support and ice to manage swelling. Continue Flomax to help with your urination. Please call the office if experiencing difficulty urinating. Scrotum drain to remain in place until your follow up appointment with Dr. Heck early next week. Our schedulers will be calling you today/tomorrow with appointment details. Current Hospital Diet Patient's current hospital diet: Regular Diet Discharge Diet Recommended Diet: Regular Diet Procedures Procedures Performed: Scrotal exploration and evacuation of hematoma with ligation of minor scrotal wall bleed. Pending Studies Studies pending at discharge: no Medical Emergencies . Who to Call and When: Medical Emergencies: If at any time you feel your situation is an emergency, please call 911 immediately. . Non-Emergent Contact Non-Emergency issues call your: Urologist Contact Number: [phone] Call Non-Emergent contact if: temperature is above 101, your pain is not controlled, your pain is worsening, your pain is concerning you, wound has increased redness, wound has increased pain, you have any medication questions . . "Provider Documentation" section prepared by Gina Connors. .
[2018-06-18 15:43] VITALS: BP 164/100; PULSE 99; TEMP 37.4; O2SAT 98
[2018-06-18 15:59] VITALS: BP 164/100; PULSE 99; TEMP 37.4; O2SAT 98
--- NOTE | 2018-06-21 17:04 | Discharge Summary ---
Discharge Summary Date of Service Jun 21, 2018. Admission Date/Reason Jun 17, 2018 at 17:49 Acute Pain In Scrotum. Discharge Date/Disposition Jun 18, 2018 Home Diagnosis Principal Diagnosis: Scrotal Hematoma. Acute Scrotum. Retention Procedure(s) Performed Scrotal Exploration Medication Reconciliation See List Admission Physical Exam As per Admitting History & Physical. Hospital Course Patient was admitted and underwent procedure urgently due to acute scrotum. Did well postoperatively. Was monitored closely. By POD1 patient was ambulating. Tolerated diet. Pain was controlled. Gonzalez was removed POD2. Patient continue to improve. Pain was better controlled. Patient continued to improve through hospitalization. POD3 continued to improve. Plans for discharge were finalized in preparation for discharge. Discharge Instructions Please refer to the electronic Patient Visit Report (Discharge Instructions) for additional information.
== END 2018-06-18 16:55 | disposition home health service (06) | DRG 921 ==
LOC: C.EDB 14:18 → C.MSW 19:19 → ENRESERV 22:40 → OBSVTOIN 06-17 17:49
PROVIDERS: ADMIT Urology; ATTEND Urology
PROC: 0VC50ZZ Extirpation of Matter from Scrotum, Open Approach (ICD-10-PCS; principal; 2018-06-14 16:45)
DX: N99.840 Postprocedural hematoma of a genitourinary system organ or structure following a genitourinary system procedure (principal); R33.9 Retention of urine, unspecified; Y83.8 Other surgical procedures as the cause of abnormal reaction of the patient, or of later complication, without mention of misadventure at the time of the procedure; Y92.019 Unspecified place in single-family (private) house as the place of occurrence of the external cause; Z87.891 Personal history of nicotine dependence; Z88.0 Allergy status to penicillin

== ENCOUNTER → 2018-06-14 | Day surgery (SDC) | payer OTHER ==
[2018-06-04 16:48] VITALS: Ht 182.9 cm; Wt 125.0 kg
--- NOTE | 2018-06-13 16:27 | DIAGNOSTIC IMAGING REPORT ---
KUB CLINICAL HISTORY: N20.0 NephrolithiasisTO BE DONE EITHER THE NIGHT BEFORE OR [facility] COMPARISON STUDY: 01/11/2018 FINDINGS: The soft tissues, psoas shadows, renal outlines and intestinal gas pattern appear normal. There is no evidence for bowel obstruction. Calcifications lower pole left kidney are unchanged. No new or interval calcifications. Compromised evaluation of the upper urinary tracts due to overlying bowel content. IMPRESSION: Unchanging calcifications lower pole left kidney. No new or interval finding. The above report was generated using voice recognition software. It may contain grammatical, syntax or spelling errors. Electronically signed by: Avery Brock M.D. 06/13/2018 4:26 PM Dictated Date/Time: 06/13/2018 4:25 PM
[~2018-06-14] VITALS: Ht 182.9 cm; Wt 125.0 kg
[~2018-06-14] MED LIST changes: +ATROPINE SULFATE 0.1 MG/ML 5ML SYR IV PRN; +BUPIVACAINE/EPINEPHRINE 0.5% MPF 1:200,000 30 ML VIAL ONE; +CEFAZOLIN 3000MG IV PUSH 22.5 ML IV SCH; +CLIN1CAP51 PO; +EpHEDrine SULFATE INJ 50 MG/ML AMP IV PRN; +FENTANYL CITRATE INJ 50 MCG/1 ML 2 ML VIAL ONE; +LABETALOL HCL IV 5 MG/ML 20ML ONE; +LACTATED RINGER'S 1000ML 1,000 ML IV SCH; +LIDOCAINE HCL 2% 2 ML VIAL (20MG/ML) ONE; +MIDAZOLAM HCL 1 MG/ML 2ML VIAL ONE; +ONDANSETRON INJ 2 MG/ML 2 ML VIAL IV PRN; +ONDANSETRON INJ 2 MG/ML 2 ML VIAL ONE; +OXYC7.5T65 PO; +OXYCODONE/ACETAMINOPHEN 5-325 TAB PO PRN; +PHEN-775 PO; +PROPOFOL IV EMULSION 10 MG/ML 20 ML VIAL ONE; +ROCURONIUM BROMIDE 10 MG/ML 5 ML VIAL ONE; +SUCCINYLCHOLINE CHLORIDE 20 MG/ML 10 ML VIAL IV ONE; +SULF800T23 PO; +TAMS0.4C38 PO
--- NOTE | 2018-06-14 06:53 | History & Physical Bridge Note ---
H&P Re-Evaluation Bridge Note: I have examined the patient, reviewed the History & Physical and in the interval since the performance of the History & Physical I have noted the following changes of clinical significance: No changes noted
--- NOTE | 2018-06-14 07:04 | Discharge Instructions ---
Discharge Instructions Date of Service Jun 14, 2018. Admission Reason for Admission: Stone/Hydrocele Discharge Discharge Diagnosis / Problem: Hydrocele and stone on left. Discharge Goals Goal(s): Decrease discomfort, Improve function Activity Recommendations Activity Limitations: resume your previous activity Lifting Limitations: gradually increase as tolerated Exercise/Sports Limitations: gradually increase as tolerated . Instructions / Follow-Up Instructions / Follow-Up May have blood in urine. May have pelvic discomfort or pain. Call if any severe pain, bleeding, or fevers. Okay to shower in 24 hours. No hot tubs, baths, or soaking. Avoid heavy lifting. Avoid overactivity. Monitor drainage. Ice 20 mins on and off as needed. Okay to use NSAIDs. Current Hospital Diet Patient's current hospital diet: Discharge Diet Recommended Diet: Regular Diet Procedures Procedures Performed: 1. Hydrocelectomy, Left 2. Left ESWL Pending Studies Studies pending at discharge: no Medical Emergencies . Who to Call and When: Medical Emergencies: If at any time you feel your situation is an emergency, please call 911 immediately. . Non-Emergent Contact Non-Emergency issues call your: Primary Care Provider, Urologist Call Non-Emergent contact if: you have a fever, temperature is above 101, temperature is above 101.5, your pain is not controlled, your pain is worsening , your pain is unusual for you, wound has increased drainage, wound has increased redness, wound has increased pain . . "Provider Documentation" section prepared by Dawit Heck. .
[2018-06-14] MEDS: FENTANYL CITRATE INJ 50 MCG/1 ML 2 ML VIAL IV PRN ×2 (09:40→09:45)
--- NOTE | 2018-06-14 10:01 | [facility] Operative Report ---
Operative Report Operative Date Jun 14, 2018. Pre-Operative Diagnosis 1. Left Hydrocele 2. Left Renal Stone Post-Operative Diagnosis Same Procedure(s) Performed 1. Left hydrocelectomy with drain placement 2. Left ESWL Surgeon Umang Estimated Blood Loss Minimal Findings Large left hydrocele and left renal stone. Specimens 1. Hydrocele Sac Drains [place] drain into left hemiscrotum Anesthesia Type General Complication(s) none Disposition Recovery Room / PACU Indications Bothersome hydrocele and recurrent stone. Risks and benefits discussed at length. Description of Procedure Procedure #1: Patient was consented and brought back to the operating room. Patient was placed under anesthesia in the supine position. Patient was prepped and draped in the regular sterile fashion. A time out was completed. With the time out completed and the patient prepped, the median raphe was marked and local injected into the subcutaneous tissues. An incision was made with a scalpel and the deep tissues were dissected with bovie electrocautery. The testicle was delivered and found to have a large hydrocele. All important structures and landmarks were identified and the sac open avoiding any areas of concern. Excess tissue was dissected and sent for analysis. The entire testicle and epididymis were examined. All bleeding was controlled. The scrotum was irrigated and all bleeding controlled. The edges of the hydrocele sac were then oversewn behind the testicle. A cord block was completed with additional local anesthetic. The entire area was examined. Due to the large size (Approx 13 cm), it was decided to place a [place] drain in the dependant portion of the scrotum to drain the hemiscrotum. The drain was placed and suture with a silk stitch. The testicle appeared viable without lesions or other areas of concern. The Testicle was placed into the hemiscrotum in anatomic position without any torsion of the cord. The deep and subcutaneous tissues were closed with a running 3-0 vicryl suture. A 3-0 Chromic suture was then used to close the skin in a running fashion. The area was cleaned. Adhesive placed. A scrotal support was placed with dressings. The patient was cleaned, aroused from anesthesia, and transferred to the pacu in stable condition having tolerated the procedure well with no complications. I was present and participated in all aspects of the procedure. Procedure #2: Patient was consented and brought back to the operating room. Patient was placed under anesthesia in the supine position. Patient was prepped and draped in the regular sterile fashion. A time out was completed. With the time out completed, The patient was assessed with fluoroscopy. The stone was identified and position was triangulated. At this point, the shock waves commenced. The stone was monitored throughout the process with fluoroscopy to assess progression and maintain position. Please see the [place] Kidney Stone Management Sheet for full report and detailed summary of procedure. With the stone treated, the procedure ended. The patient was cleaned, aroused from anesthesia, and transferred to the pacu in stable condition having tolerated the procedure well with no complications. I was present and participated in all aspects of the procedure. The patient will be monitored in the PACU until transferred. I attest to the content of the Intraoperative Record and any orders documented therein. Any exceptions are noted below.
--- NOTE | 2018-06-14 10:08 | Anesthesia Progress Nt - [facility] ---
Anesthesia Post Op Note Date & Time Jun 14, 2018 at 10:07 Vital Signs Pain Intensity: 3 Vital Signs Past 12 Hours Date Time Temp Pulse Resp B/P (MAP) Pulse Ox O2 Delivery O2 Flow Rate FiO2 06/14/18 09:56 Room Air 06/14/18 09:20 36 75 16 132/89 98 Diffusion Mask 5 06/14/18 06:27 36.3 95 20 155/111 (126) 98 Room Air Notes Mental Status: alert / awake / arousable, participated in evaluation Pt Amnestic to Procedure: Yes Nausea / Vomiting: adequately controlled Pain: adequately controlled Airway Patency, RR, SpO2: stable & adequate BP & HR: stable & adequate Hydration State: stable & adequate Anesthetic Complications: no major complications apparent
[2018-06-14 10:15] VITALS: BP 145/97; PULSE 73; TEMP 36.5; O2SAT 94
== END | disposition home or self-care (01) ==
LOC: X.SURG 06:01 → EDSTATUS 09:00
PROVIDERS: ATTEND Urology
DX: N43.3 Hydrocele, unspecified (principal); N20.0 Calculus of kidney; E66.9 Obesity, unspecified; Z68.37 Body mass index [BMI] 37.0-37.9, adult; Z87.891 Personal history of nicotine dependence; I10 Essential (primary) hypertension; K21.9 Gastro-esophageal reflux disease without esophagitis

== ENCOUNTER → 2018-06-26 | Outpatient (CLI) | payer OTHER ==
[~2018-06-26] MED LIST changes: +AMLO-341 PO; +BECL80AE7 INH; -CLIN1CAP51 PO; +CLR10 PO; +FAMO20TA11 PO; -PHEN-775 PO; -SULF800T23 PO; -TAMS0.4C38 PO; +VITA1TAB4 PO
--- NOTE | 2018-06-26 09:53 | DIAGNOSTIC IMAGING REPORT ---
KUB CLINICAL HISTORY: N20.0 NEPHROLITHIASIS COMPARISON STUDY: 06/13/2018 FINDINGS: The renal shadows are partially secured by overlying bowel gas and fecal material. No urinary tract calculi are visualized on conventional radiographic imaging. There is no pathologic bowel dilatation. IMPRESSION: No urinary tract calculi are visualized. Electronically signed by: Moises Carrion M.D. 06/26/2018 9:52 AM Dictated Date/Time: 06/26/2018 9:51 AM
== END | disposition home or self-care (01) ==
LOC: C.RAD 09:27
PROVIDERS: ATTEND Urology
DX: N20.0 Calculus of kidney (principal)